=== PATIENT | female | born 1985 | race Caucasian/White ===

== ENCOUNTER 2021-07-16 10:28 | Emergency (ER) | payer OTHER ==
[~2021-07-16 10:28] MED LIST: ACID CONTROLLER20 MG PO; ALEVE220 M1 PO; BREO ELLIPTA 11 EACH INH; CARAFATE1 GM PO; CATAPRES0.1 MG PO; DICYCLOMINE HCL20 MG PO; ESTRACE1 MG PO; ETODOLAC ER600 MG PO; IBU-DROPS50 MG/1.25 PO; LAMICTAL100 MG PO; MEDROL 4MG DOSEP4 MG PO; MOTRIN600 MG PO; NAPROXEN500 MG PO; NORCO 5-325 TA1 EACH PO; PHENERGAN25 M1 PO; PROTONIX 40MG T40 MG PO; TIZANIDINE HCL PO; TIZANIDINE HCL4 MG PO; VALTREX500 MG PO; VOLTAREN **OUT50 MG PO; XANAX0.25 MG PO; ZPAK PO
== END 2021-07-16 14:04 | disposition left against medical advice (07) ==
LOC: FER 10:28
DX: R05 Cough (principal); R53.1 Weakness; J44.9 Chronic obstructive pulmonary disease, unspecified; Z88.1 Allergy status to other antibiotic agents; Z88.2 Allergy status to sulfonamides; Z88.5 Allergy status to narcotic agent; F17.210 Nicotine dependence, cigarettes, uncomplicated; Z53.8 Procedure and treatment not carried out for other reasons
CPT/HCPCS: 71045

== ENCOUNTER 2022-05-15 11:54 | Emergency (ER) | payer OTHER ==
[2022-05-15] MEDS ORDERED: SERTRALINE HCL100 MG PO (13:37)
[2022-05-15] MEDS ORDERED: ONDANSETRON ODT4 MG PO (13:37)
[2022-05-15] MEDS ORDERED: CYCLOBENZAPRINE10 MG PO (13:37)
[2022-05-15] MEDS ORDERED: PREDNISONE 20MG20 MG PO (14:04)
[2022-05-15 14:17] LABS: BASOPHIL 1.2 % (0-2); EOSINOPHIL 2.2 % (0-5); HCT 45.5 % (37.0-47.0); HGB 15.1 g/dl (12.5-16.0); LYMPHOCYTE 37.9 % (15-48); MCH 29.8 pg (25.0-31.0); MCHC 33.2 g/dL (32.0-36.0); MCV 89.7 fL (78.0-100.0); MONOCYTE 7.3 % (0-12); MPV 10.2 fL (6.0-9.5); NEUTROPHIL 50.9 % (41-80); NRBC 0; PLT 245 K/uL (150-400); RBC 5.07 M/uL (4.20-5.40); RDW 12.8 % (11.5-14.0); WBC 6.5 K/uL (4.0-10.5)
[2022-05-15 14:47] LABS: BILIRUBIN - TOTAL 0.3 mg/dL (0.2-1.0); BUN/CREAT RATIO (CALC) 14.9 RATIO; CREATININE 0.74 mg/dL (0.51-0.95); GLOBULIN (CALCULATION) 3.3 g/dL; POTASSIUM 3.7 mmol/L (3.5-5.1); TOTAL PROTEIN 7.3 g/dL (6.4-8.2)
== END 2022-05-15 15:50 | disposition home or self-care (01) ==
LOC: FER 11:54
PROVIDERS: Emergency Medicine
DX: M54.10 Radiculopathy, site unspecified (principal); Z88.2 Allergy status to sulfonamides; Z88.5 Allergy status to narcotic agent; Z88.8 Allergy status to other drugs, medicaments and biological substances
CPT/HCPCS: 36415; 71045; 80053; 84484; 85025; 93005; J1885